=== PATIENT | female | born 1965 | race Caucasian/White ===

== ENCOUNTER 2016-08-01 03:24 | Emergency (ER) | payer MEDICARE ==
[2016-08-01 04:14] LABS: BASO % 0.1 % (0.1-1.2); EOS # 0.2 10_X3_uL (0.0-0.4); EOS % 2.6 % (0.7-5.8); GRAN # 4.6 10_X3_uL (1.6-6.1); GRAN % 53.7 % (34.0-71.1); HEMOGLOBIN 12.8 g/dL (11.2-15.7); LYMPH % 34.6 % (19.3-51.7); MEAN CORPUSCULAR HGB CONC 32.8 g/dL (32.0-36.0); MEAN CORPUSCULAR VOLUME 91.3 fL (79-95); MEAN PLATELET VOLUME 10.8 fl (7.5-11.5); MONO # 0.8 10_X3_uL (0.2-0.9); PLATELET COUNT 273 x10_3/uL (182-369); RED BLOOD COUNT 4.27 x10_6/uL (3.9-5.2); RED CELL DISTRIBUTION WIDTH 12.1 % (11.7-14.4); WHITE BLOOD COUNT 8.6 x10_3/uL (4.0-10.0)
[2016-08-01 04:25] LABS: PARTIAL THROMBOPLASTIN TIME 26.7 SECONDS (21.3-29.3); PROTHROMBIN TIME (PATIENT) 10.2 SECONDS (9.9-11.1)
[2016-08-01 04:33] LABS: CREATINE KINASE 63 U/L (21-215); LIPASE 28 U/L (6.75-60.75)
[2016-08-01 05:08] LABS: BLOOD UREA NITROGEN 18 mg/dL (7-18); CARBON DIOXIDE 21 mmol/L (21-32); CREATININE 0.7 mg/dL (0.6-1.3); GLUCOSE,RANDOM 116 mg/dL (70-99); POTASSIUM 4.1 mmol/L (3.5-5.1); SODIUM 143 mmol/L (136-145)
== END 2016-08-01 06:49 | disposition home or self-care (01) ==
LOC: ER 03:24
PROVIDERS: Emergency Medicine
DX: I48.0 Paroxysmal atrial fibrillation (principal); M25.512 Pain in left shoulder; F32.9 Major depressive disorder, single episode, unspecified; E78.5 Hyperlipidemia, unspecified; Z86.718 Personal history of other venous thrombosis and embolism; I69.898 Other sequelae of other cerebrovascular disease; G40.909 Epilepsy, unspecified, not intractable, without status epilepticus; D68.9 Coagulation defect, unspecified; Z95.828 Presence of other vascular implants and grafts; Z87.891 Personal history of nicotine dependence; Z88.8 Allergy status to other drugs, medicaments and biological substances; Z88.7 Allergy status to serum and vaccine; Z79.01 Long term (current) use of anticoagulants; Z79.899 Other long term (current) drug therapy; I95.9 Hypotension, unspecified; R11.0 Nausea
CPT/HCPCS: 36415; 71010; 80048; 82550; 82553; 83690; 83735; 85025; 85610; 85730; 93005; 96361; 96374; 96375; 99070; 99283-25; 99284; J7050

== ENCOUNTER 2016-08-08 09:48 | Emergency (ER) | payer MEDICARE ==
[2016-08-08 10:31] LABS: BASO % 0.1 % (0.1-1.2); EOS # 0.4 10_X3_uL (0.0-0.4); EOS % 3.6 % (0.7-5.8); GRAN # 6.3 10_X3_uL (1.6-6.1); GRAN % 64.4 % (34.0-71.1); HEMATOCRIT 42.5 % (34-45); HEMOGLOBIN 14.1 g/dL (11.2-15.7); LYMPH # 2.5 10_X3_uL (1.2-3.7); LYMPH % 25.7 % (19.3-51.7); MEAN CORPUSCULAR HEMOGLOBIN 30.1 pg (27.0-33.0); MEAN CORPUSCULAR HGB CONC 33.2 g/dL (32.0-36.0); MEAN CORPUSCULAR VOLUME 90.6 fL (79-95); MEAN PLATELET VOLUME 10.6 fl (7.5-11.5); MONO # 0.6 10_X3_uL (0.2-0.9); MONO % 6.2 % (4.7-12.5); PLATELET COUNT 313 x10_3/uL (182-369); RED BLOOD COUNT 4.69 x10_6/uL (3.9-5.2); RED CELL DISTRIBUTION WIDTH 12.5 % (11.7-14.4); WHITE BLOOD COUNT 9.8 x10_3/uL (4.0-10.0)
[2016-08-08 10:43] LABS: ALBUMIN 4.2 gm/dL (3.4-5.0); ALKALINE PHOSPHATASE 110 U/L (50-136); ALT/SGPT 20 U/L (3.5-33.9); AST/SGOT 18 U/L (7.04-26.96); BILIRUBIN,TOTAL 0.23 mg/dL (0.0-1.0); BLOOD UREA NITROGEN 19 mg/dL (7-18); CALCIUM 8.9 mg/dL (8.7-10.7); CARBON DIOXIDE 18 mmol/L (21-32); CREATINE KINASE 50 U/L (21-215); CREATININE 0.6 mg/dL (0.6-1.3); GLUCOSE,RANDOM 119 mg/dL (70-99); POTASSIUM 4.2 mmol/L (3.5-5.1); SODIUM 140 mmol/L (136-145); TOTAL PROTEIN 6.9 gm/dL (6.4-8.2)
[2016-08-08 10:48] LABS: ARTERIAL BLOOD GAS BASE EXCESS -4.2 mmol/L (-2.0-3.0); ARTERIAL BLOOD GAS HCO3 19.2 mmol/L (22-26); ARTERIAL BLOOD GAS PCO2 31.9 mmHg (32-45)
== END 2016-08-08 11:51 | disposition home or self-care (01) ==
LOC: ER 09:48
PROVIDERS: Emergency Medicine; Internal Medicine
DX: R07.89 Other chest pain (principal); R00.2 Palpitations; Z86.73 Personal history of transient ischemic attack (TIA), and cerebral infarction without residual deficits; Z79.899 Other long term (current) drug therapy; Z88.8 Allergy status to other drugs, medicaments and biological substances; Z88.7 Allergy status to serum and vaccine; I48.91 Unspecified atrial fibrillation; D68.9 Coagulation defect, unspecified; M79.602 Pain in left arm; R68.84 Jaw pain; Z79.02 Long term (current) use of antithrombotics/antiplatelets
CPT/HCPCS: 36415; 36600; 71010; 80053; 82550; 82553; 82803; 85025; 93005; 99070; 99285-25; J8597; Q0169

== ENCOUNTER 2016-09-27 15:49 | Emergency (ER) | payer MEDICARE ==
[2016-09-27 17:05] LABS: BLOOD UREA NITROGEN 10 mg/dL (7-18); CALCIUM 8.7 mg/dL (8.7-10.7); CARBON DIOXIDE 22 mmol/L (21-32); CREATININE 0.7 mg/dL (0.6-1.3); GLUCOSE,RANDOM 119 mg/dL (70-99); POTASSIUM 4.1 mmol/L (3.5-5.1); SODIUM 141 mmol/L (136-145)
[2016-09-27 17:31] LABS: GRAN # 5.8 10_X3_UL (1.6-6.1); HEMATOCRIT 39.9 % (34-45); HEMOGLOBIN 12.7 g/dl (11.2-15.7); LYMPH # 2.6 10_X3_UL (1.2-3.7); MEAN CORPUSCULAR HEMOGLOBIN 29.1 pg (27.0-33.0); MEAN CORPUSCULAR HGB CONC 31.8 g/dl (32.0-36.0); MEAN CORPUSCULAR VOLUME 91.5 fl (79-95); MIXED # 0.7 10_X3_UL (0-12); PLATELET COUNT 241 x10_3/UL (182-369); RED BLOOD COUNT 4.36 x10_6/ul (3.9-5.2); RED CELL DISTRIBUTION WIDTH 13.2 % (11.7-14.4); WHITE BLOOD COUNT 9.1 x10_3/ml (4.0-10.0)
[2016-09-27 17:32] LABS: GRAN % 63.4 % (34.0-71.1); LYMPH % 28.9 % (19.3-51.7); MIXED % 7.7 % (1.7-9.3)
== END 2016-09-27 20:25 | disposition short-term general hospital (02) ==
LOC: ER 15:49
PROVIDERS: General Practice
DX: I20.9 Angina pectoris, unspecified (principal); R07.89 Other chest pain; I48.91 Unspecified atrial fibrillation; Z88.8 Allergy status to other drugs, medicaments and biological substances; Z88.7 Allergy status to serum and vaccine; Z79.899 Other long term (current) drug therapy
CPT/HCPCS: 36415; 71010; 71260; 80048; 80307; 85025; 85379; 93005; 96372; 96374; 99070; 99284; 99285-25; J7040; Q9967